=== PATIENT | male | born 1965 | race American Indian/Alaskan Native ===

== ENCOUNTER 2017-03-29 23:16 | Emergency (ER) | payer MEDICAID ==
[2017-03-29 23:23] VITALS: BP 143/88
[2017-03-30] MEDS ORDERED: PROVENTIL IH ONE (00:09)
== END 2017-03-30 04:31 | disposition left against medical advice (07) ==
LOC: ED 23:16
DX: R06.2 Wheezing (principal); R05 Cough; Z53.21 Procedure and treatment not carried out due to patient leaving prior to being seen by health care provider
CPT/HCPCS: 94640